=== PATIENT | female | born 1930 | race Caucasian/White ===

== ENCOUNTER 2020-02-06 06:40 | Observation (INO) | payer MEDICARE ==
[~2020-02-06] VITALS: Ht 152.4 cm; Wt 53.1 kg
[2020-02-06] VITALS (8 sets, daily range): BP systolic 149–228; BP diastolic 67–96
[2020-02-06] MEDS ORDERED: SODIUM CHLORIDE 0.9% 1,000 ML IV SCH (07:07)
[2020-02-06] MEDS ORDERED: VALE100C PO (07:22)
[2020-02-06] MEDS ORDERED: L.AC1CAP6 PO (07:22)
[2020-02-06] MEDS ORDERED: [UNRECOGNIZED DRUG - CODE] PO (07:22)
[2020-02-06] MEDS ORDERED: CHOL10003 PO (07:22)
[2020-02-06] MEDS ORDERED: AMLO-150 PO (07:22)
[2020-02-06] MEDS ORDERED: VERAPAMIL 2.5 MG/ML, 2ML ONE (09:08)
[2020-02-06] MEDS ORDERED: ACETAMINOPHEN 325 MG TABLET PO PRN (09:30)
[2020-02-06] MEDS ORDERED: HOLD MEDICATION MC PRN (09:30)
[2020-02-06] MEDS: AMLODIPINE 5 MG TABLET PO SCH (09:30)
[2020-02-06] MEDS ORDERED: LABETALOL 5MG/ML, 20ML ONE (11:14)
[2020-02-06] MEDS: LABETALOL 5MG/ML, 20ML IVPush PRN ×3 (11:33→20:03)
[2020-02-06] MEDS ORDERED: [UNRECOGNIZED DRUG - OTHER] PO (15:55)
[2020-02-06] MEDS: CEFAZOLIN PMX 1GM/50ML 50 ML IVPB SCH (18:08)
[2020-02-06] MEDS ORDERED: AMLODIPINE 5 MG TABLET PO ONE ×2 (18:30→22:00)
[2020-02-06] MEDS ORDERED: NITROGLYCERIN 0.4 MG BOTTLE (25 TABS) SL ONE (18:30)
[2020-02-06] MEDS ORDERED: METOPROLOL SUCCINATE 50 MG TAB.ER.24H ONE (18:32)
[2020-02-06] MEDS ORDERED: NITROGLYCERIN 0.4 MG BOTTLE (25 TABS) SL PRN (19:30)
[2020-02-06] MEDS: SODIUM CHLORIDE FLUSH 10ML SYR IVF SCH (20:04)
[2020-02-07 00:58] VITALS: BP 157/71
[2020-02-07] MEDS: CEFAZOLIN PMX 1GM/50ML 50 ML IVPB SCH (01:15)
[2020-02-07] MEDS ORDERED: METOPROLOL SUCCINATE 50 MG TAB.ER.24H PO SCH (06:00)
[2020-02-07 06:59] VITALS: BP 164/73
[2020-02-07] MEDS ORDERED: CHOLECALCIFEROL 5,000u TAB PO SCH (09:00)
[2020-02-07] MEDS ORDERED: METO-93 PO (09:02)
[2020-02-07] MEDS ORDERED: ACET325T26 PO (09:02)
[2020-02-07] MEDS: AMLODIPINE 5 MG TABLET PO SCH (09:44)
[2020-02-07] MEDS: SODIUM CHLORIDE FLUSH 10ML SYR IVF SCH (09:45)
== END 2020-02-07 11:55 | disposition home or self-care (01) ==
LOC: CACL 06:40 → ORIP 09:06 → 5SO 09:56 → DCLOUNGE 02-07 11:36
PROVIDERS: ADMIT Internal Medicine Cardiovascular Disease; ATTEND Internal Medicine Cardiovascular Disease
DX: I44.2 Atrioventricular block, complete (principal); I10 Essential (primary) hypertension; R01.1 Cardiac murmur, unspecified; R53.83 Other fatigue; M19.90 Unspecified osteoarthritis, unspecified site; M54.40 Lumbago with sciatica, unspecified side
CPT/HCPCS: 33208; 71045; 71046; 93306; 96365; 96366; 96375; 96376; 99156; C1779; C1785; C1892; G0378; J0690